=== PATIENT | female | born 1960 | race American Indian/Alaskan Native ===

== ENCOUNTER → 2024-01-23 | Outpatient (CLI) | payer OTHER, SELFPAY ==
--- NOTE | 2024-01-23 15:30 | XR_ITS ---
Examination: CT cervical spine without contrast 2-D sagittal reconstructions 2-D coronal reconstructions 3-D reconstructions. Exam date and time:January 23, 2024 1555 hours INDICATIONS: Chronic neck pain years CTDI:vol (mGy) 13.1 DLP: (mGycm) 279 Technique: Multiple 2 mm axial sections of the cervical spine have been obtained. The coronal and sagittal reconstructions have been obtained. 3-D reconstructions have been obtained. Low dose protocols were performed. One or more of the following dose reduction techniques were used; automated exposure control, adjustment of the mA and/or KV according to patient size, use of iterative reconstruction technique. Findings: Axial sections demonstrate intact base of the skull. C1 exhibit satisfactory relationship to the odontoid. No acute cervical vertebral body fracture seen. Alignment posterior spinous processes satisfactory. Cervical fusion C5 through C7 with anatomic alignment Moderate disc narrowing C3-C4, C7-T1 C3-C4 moderate left neural foraminal stenosis C4-C5 moderate left neural foraminal stenosis C5-C6 advanced left neural foraminal stenosis Impression: No acute cervical fracture. Cervical fusion C5-C7 with anatomic alignment C3-C4 moderate left neural foraminal stenosis C4-C5 moderate left neural foraminal stenosis C5-C6 advanced left neural foraminal stenosis
== END | disposition home or self-care (01) ==
LOC: CCTX 15:36
PROVIDERS: PCP Nurse Practitioner Family; Referring Provider Nurse Practitioner Family; Visit Provider Nurse Practitioner Family
DX: M43.22 Fusion of spine, cervical region (principal); M48.02 Spinal stenosis, cervical region
CPT/HCPCS: 72125